=== PATIENT | female | born 1990 | race Caucasian/White ===

== ENCOUNTER 2017-04-01 18:07 | Emergency (ER) | payer SELFPAY ==
[2017-04-01] MEDS ORDERED: TYLENOL PO ONE (18:17)
[2017-04-01 19:44] LABS: Bilirubin,Urine NEG (Negative); Blood,Urine NEG (Negative); Ketones,Urine NEG (Negative); Leukocyte Esterase,Urine MOD (Negative); Mucus,Urine FEW /HPF; Nitrite,Urine NEG (Negative); Protein,Urine <15 mg/dL mg/dL (Negative); Urobilinogen,Urine < 2.0 mg/dL (<2.0)
[2017-04-01] MEDS ORDERED: FLEXERIL PO ONE (23:02)
[2017-04-01] MEDS ORDERED: MOTRIN PO ONE (23:02)
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
[2017-04-02 00:04] VITALS: BP 118/68
== END 2017-04-02 00:07 | disposition home or self-care (01) ==
LOC: ED 18:07
DX: M54.5 Low back pain (principal); V49.49XA Driver injured in collision with other motor vehicles in traffic accident, initial encounter; Y93.9 Activity, unspecified; Y92.9 Unspecified place or not applicable; Y99.9 Unspecified external cause status
CPT/HCPCS: 72100; 81001; 81025; 99284